=== PATIENT | male | born 1990 | race Asian ===

== ENCOUNTER 2017-10-15 13:25 | Emergency (ER) | payer OTHER ==
[~2017-10-15] VITALS: Ht 162.6 cm; Wt 69.5 kg
[2017-10-15 13:32] VITALS: Ht 162.6 cm; Wt 69.5 kg
[2017-10-15] MEDS ORDERED: LIDOCAINE/EPINEPHRINE 1% 20 ML VIAL INFIL STA (14:28)
[2017-10-15] MEDS ORDERED: CEPHALEXIN MONOHYDRATE 250 MG CAP PO STA (14:29)
[2017-10-15] MEDS ORDERED: CEPH500C PO (15:25)
--- NOTE | 2017-10-15 15:33 | EMERGENCY ROOM VISIT NOTE ---
ED Visit Note First contact with patient: 13:39 CHIEF COMPLAINT: Left wrist laceration HISTORY OF PRESENT ILLNESS: This 27 year old male patient presents to the emergency department, via BLS, approximately 1 hour after cutting the left wrist accidentally with a knife. Of note, the patient's primary language is Mandarin. He is here with a female friend who is interpreting for the patient. The patient was at work [employer], where he ran into a knife which was misplaced on the counter. The bleeding has stopped. The wound was bandaged by EMS. Denies weakness or numbness of the fingers or hand. The patient rates the pain as sharp and 0/10. The patient denies any other injuries. The patient's Tetanus shot is up to date. The patient denies any intent to injure or harm himself. REVIEW OF SYSTEMS: A 6 system review of systems was completed with positives and pertinent negatives listed in the HPI. ALLERGIES: None MEDICATIONS: None PMH: None SOCIAL HISTORY: The patient lives locally at work. He denies drug, alcohol, tobacco use. PHYSICAL EXAM: Vital Signs: Reviewed Nurse's notes, vital signs stable. GENERAL : This is a 27-year-old male, in no acute distress, well-developed, well- nourished. SKIN: There is a 4 cm long laceration on the volar aspect of the left wrist. The edges gape apart with traction. There is no foreign material in the wound and it looks clean. There is moderate bleeding. There is a partial flexor tendon laceration at the base of the wound. No other deep structures such as bones or significant blood vessels are seen in the base of the wound. Very mildly decreased strength and flexion of the wrist. Normal strength and movement of the hand. Capillary refill less than 2 seconds. Normal sensation to light and sharp touch. EMERGENCY DEPARTMENT COURSE: I examined the patient. I consulted with orthopedics due to the tendon laceration. I spoke with Dr. Aguilar, who recommended loosely closing the laceration with follow-up outpatient in the office. Verbal consent was obtained to perform the procedure. Using sterile technique the wound was cleansed with Betadine. The area was sterilely draped. 5 ml of 1% buffered lidocaine was used to anesthetize the laceration on the wrist. Once the patient was anesthetized, the wound was copiously irrigated under pressure with sterile saline. The wound was explored and was as described above. The laceration was repaired using 4 simple interrupted 5-0 nylon sutures with the wound edges being well approximated. The patient tolerated the procedure well. Hemostasis was achieved. The area was cleaned with sterile saline and dressed with Xeroform and bandage. He was placed in a Volar orthoglass splint and neurovascular status rechecked and intact. Discharge instructions reviewed and I stressed the need for close orthopedics follow-up. The patient was given his first dose of Keflex here in the ED with a prescription sent to the pharmacy. The patient was discharged home in good condition. I attest that I have personally reviewed the patient's current medication list. Patient was found to have normal blood pressure on screening and does not require follow-up. Differential diagnosis includes laceration, contusion, fracture, sprain/strain, tendon or ligament injury, neurovascular compromise, foreign body, assault, suicide attempt, and others DIAGNOSIS: Left wrist laceration, flexor tendon laceration of the left wrist The chart was completed utilizing [employer] Speech voice recognition software. Grammatical errors, random word insertions, pronoun errors, and incomplete sentences are an occasional consequence of this system due to software limitations, ambient noise, and hardware issues. Any formal questions or concerns about the content, text, or information contained within the body of this dictation should be directly addressed to the provider for clarification. Current/Historical Medications Scheduled Cephalexin Monohydrate (Keflex), 500 MG PO QID Allergies Coded Allergies: No Known Allergies (Unverified , 10/15/17) Vital Signs Date Time Temp Pulse Resp B/P (MAP) Pulse Ox O2 Delivery O2 Flow Rate FiO2 10/15/17 15:12 71 18 122/82 99 Room Air 10/15/17 13:32 36.8 60 16 116/71 96 Room Air Medications Administered Medications (Trade) Dose Ordered Sig/Roberto Route Start Time Stop Time Status Last Admin Dose Admin Cephalexin Monohydrate (Keflex Cap) 500 mg NOW STAT PO 10/15/17 14:29 10/15/17 14:30 DC 10/15/17 14:36 500 MG Departure Information Impression Primary Impression: Wrist laceration Additional Impression: Flexor tendon laceration of left wrist with open wound Dispostion Home / Self-Care Condition GOOD Prescriptions Cephalexin Monohydrate (Keflex) 500 Mg Cap 500 MG PO QID for 10 Days, #40 CAP Prov: Loyd, Angélica D., PA-C 10/15/17 Referrals No Doctor, Assigned (PCP) Rafal Winkler MD Patient Instructions ED Laceration Hand, ED Laceration Tendon, [facility] Additional Instructions You have received 4 sutures on your wrist. These sutures are NOT dissolvable and WILL need to be removed by a health care provider in 8-10 days. You can return to the Emergency Department or contact your Primary Care Provider to have the sutures removed. Cephalexin(Keflex) 500mg: Take one pill four times daily for 10 days for your skin infection. All antibiotics can cause diarrhea. If this occurs and you feel worse or it does not resolve in 1-2 days follow up with your doctor or return to the Emergency Department as this could be signs of serious underlying problems. Any medication can cause an allergic reaction, stop the pills immediately and return to the ER for rash, hives, breathing difficulties, or swelling. Proper wound care is essential for adequate wound healing and infection prevention. You can shower and clean the wound with soap and water. Do not scour over the wound, pat dry with a towel. Do not submerse the wound (i.e. bathe or dish wash) until the sutures have been removed. You can use an antibiotic ointment with a dressing over the wound for the next 3-4 days. After this time you may leave the wound dry and open to the air. If crust develops over the wound you can use a Q-tip to apply a 1:1 peroxide:water solution to clean the wound. Look for signs of infection of the wound including: increased pain, swelling, foul discharge, streaking, or increased temperature. If any of these are noticed you should return to the Emergency Department for further assessment and treatment. As with any laceration you may have received nerve damage to the surrounding tissues. This damage may or may not be permanent. You should keep the area covered with sunscreen for the first 6 months to 1 year when at risk for exposure to help minimize scarring. You can also use scar reducing creams or Vitamin E oil to help minimize scarring. For pain control, you can use the following [id number] medicines (if >12 yo): Ibuprofen(Motrin, Advil) may be used for fever or pain. Use 600mg every six hours as needed. Take with food. Avoid using more than 2400mg in a 24 hour period. Do not use 2400mg per day for more than three consecutive days without physician direction. Prolonged inappropriate use can lead to stomach upset or ulcers. (AND/OR) Acetaminophen(Tylenol) may be used for fever or pain. Use 1000mg every six hours as needed. Avoid using more than 3000mg in a 24 hour period. Ice compresses for 20 minutes at a time four times daily for 2-3 days. Rest and elevate your injury. Do not get the splint wet. If your splint feels excessively tight, you have worsening pain, develop numbness or tingling, or your digits appear blue, loosen the kelvin wrap. Then reapply the kelvin wrap gently without removing the splint. If your symptoms are not quickly relieved return to the ER for re- evaluation. Return to the ER immediately for any numbness, tingling, severe pain, extreme swelling in the extremity or as needed. Follow-up with [facility] tomorrow for further evaluation and management. Follow-up with your primary care physician in 2 to 3 days for a recheck of your current condition. Problem Qualifiers Primary Impression: Wrist laceration Encounter type: initial encounter Laterality: left Qualified Codes: S61.512A - Laceration without foreign body of left wrist, initial encounter Additional Impression: Flexor tendon laceration of left wrist with open wound Encounter type: initial encounter Qualified Codes: S66.922A - Laceration of unspecified muscle, fascia and tendon at wrist and hand level, left hand, initial encounter; S61.502A - Unspecified open wound of left wrist, initial encounter
[2017-10-15 15:39] VITALS: BP 122/82; PULSE 71; TEMP 36.8; O2SAT 99
== END 2017-10-15 15:40 | disposition home or self-care (01) ==
LOC: C.EDC 13:29
DX: S66.121A Laceration of flexor muscle, fascia and tendon of left index finger at wrist and hand level, initial encounter (principal); S61.512A Laceration without foreign body of left wrist, initial encounter; W26.0XXA Contact with knife, initial encounter; Y99.0 Civilian activity done for income or pay; Y92.511 Restaurant or cafe as the place of occurrence of the external cause